=== PATIENT | male | born 1950 | race Caucasian/White ===

== ENCOUNTER → 2017-07-05 | Outpatient (CLI) | payer OTHER ==
[~2017-07-05] MED LIST: ASPIR 8181 MG PO; CARVEDILOL6.25 MG PO; CILOSTAZOL 100100 M1 PO; CIPRO500 MG PO; CRESTOR10 MG PO; FLOMAX0.4 MG PO; NORCO 5-325 TA1 EACH PO; ONDANSETRON HCL4 M2 PO; PLAVIX 75 MG TA75 M1 PO
--- NOTE | ~2017-07-05 | EKG ---
[address] [place] [address] ELECTROCARDIOGRAM REPORT Name: ANTELMO MENDEZ Room #: REG CLAndreas Sarkar#: [id number] Admission: 07/05/17 Attend Phys: Cheryl Thacker Discharge: Date of : 52 Report #: [id number] THIS REPORT FOR: //name// [facility] Test Date: 2017-07-05 Test Time: 06:58:45 Pat Name: ANTELMO MENDEZ Department: Room: Gender: Clean Room Assembler: ELLE : 1950 Requested By: Toi Cr Order Number: [id number] MD: Ortega Pickens Measurements Intervals Michie Rate: 60 P: 24 DC: 169 QRS: -26 QRSD: 101 T: 22 QT: 404 QTc: 404 Interpretive Statements Sinus rhythm Inferior infarct, old No previous ECG available for comparison Electronically Signed On 07-05-2017 8:31:51 CDT by Ortega Pickens [email or web address] <ELECTRONICALLY SIGNED> By: Ortega Pickens MD, [facility] 07/05/17 0831 [id number] Ortega Pickens MD, FACC /EPI
== END | disposition home or self-care (01) ==
LOC: LITH 06:39
DX: N20.1 Calculus of ureter (principal); E78.00 Pure hypercholesterolemia, unspecified; Z95.5 Presence of coronary angioplasty implant and graft